=== PATIENT | male | born 1990 | race Caucasian/White ===

== ENCOUNTER 2019-01-30 20:11 | Emergency (ER) | payer OTHER ==
[~2019-01-30] VITALS: Ht 177.8 cm; Wt 69.0 kg
[2019-01-30] MEDS ORDERED: KETOROLAC 60MG/2ML VIAL IM ONE (23:00)
[2019-01-30] MEDS ORDERED: DIAZEPAM 5 MG TABLET PO ONE (23:00)
[2019-01-30 23:11] VITALS: BP 146/98
== END 2019-01-30 23:26 | disposition home or self-care (01) ==
LOC: ER 20:11
DX: M54.9 Dorsalgia, unspecified (principal); J45.909 Unspecified asthma, uncomplicated; Z88.0 Allergy status to penicillin
CPT/HCPCS: 96372; 99283; J1885